=== PATIENT | male | born 1975 | race Caucasian/White ===

== ENCOUNTER 2017-11-19 17:56 | Emergency (ER) | payer OTHER ==
[2017-11-19] MEDS ORDERED: Sodium Chloride 0.9% 10 ML Syringe FLUSH PRN (18:23)
--- NOTE | 2017-11-19 18:38 | EDM.PDOC ---
ED HPI GENERAL MEDICAL PROBLEM - General Chief Complaint: Chest Pain Stated Complaint: CHEST PAIN Time Seen by Provider: 11/19/17 17:59 Source of Information: Reports: Patient History Limitations: Reports: No Limitations - History of Present Illness INITIAL COMMENTS - FREE TEXT/NARRATIVE: 41-year-old male presents for evaluation and treatment of left-sided chest pain. Patient describes the pain as starting on the left lower chest and radiated up into his left underarm. Reports that is pleuritic in nature. Present constantly for the last 2 days. Describes the pain as a throbbing sensation. Currently rates the pain as a 2 or 3 out of 10 and is declining any pain medication at present. He denies feeling shortness of breath but states that trying to control his breathing. Reports associated symptoms of a nonproductive cough. No lightheadedness, dizziness, nausea, vomiting, fevers or chills. He reports some pain in his right foot and ankle from her recent ankle sprain. reports radiation of the pain into his right calf. Patient did take 800 mg of ibuprofen prior to arrival in the ER around 1430 which gave him some relief. Patient does not use any tobacco products. Patient reports for work he works in [employer]. 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 No primary care provider. Duration: Day(s): (2) Location: Reports: Chest (left) Left Chest Pain Score (Numeric/FACES): 3 - Related Data Allergies Allergy/AdvReac Type Severity Reaction Status Date / Time No Known Allergies Allergy Verified 11/19/17 18:03 Home Meds: Home Meds Levofloxacin [Levaquin] 750 mg PO DAILY #6 tablet 11/19/17 [Rx] Past Medical History HEENT History: Reports: Impaired Vision Other HEENT History: wears glasses - Past Surgical History Other Musculoskeletal Surgeries/Procedures:: fractured foot and has screw in place Social & Family History - Tobacco Use Smoking Status *Q: Never Smoker Second Hand Smoke Exposure: No - Caffeine Use Caffeine Use: Reports: Coffee, Energy Drinks - Recreational Drug Use Recreational Drug Use: No ED ROS GENERAL - Review of Systems Review Of Systems: See Below Constitutional: Reports: Chills. Denies: Fever Respiratory: Reports: Pleuritic Chest Pain (left sided), Cough. Denies: Shortness of Breath (reprots trying to control breathing), Sputum Cardiovascular: Reports: Chest Pain (reports left sided chest pain). Denies: Lightheadedness GI/Abdominal: Denies: Abdominal Pain, Nausea, Vomiting Musculoskeletal: Reports: Leg Pain (right foot, ankle and lower leg) Neurological: Denies: Dizziness, Syncope ED EXAM, GENERAL - Physical Exam Exam: See Below Exam Limited By: No Limitations General Appearance: Alert, WD/WN, No Apparent Distress, Obese Ears: Normal External Exam Nose: Normal Inspection Throat/Mouth: Normal Inspection, Normal Voice, No Airway Compromise Respiratory/Chest: Lungs Clear, Normal Breath Sounds, Other (tachypnea) Cardiovascular: Regular Rate, Rhythm, No Murmur, Tachycardia GI/Abdominal: Soft, Non-Tender Neurological: Alert, Oriented, Normal Cognition Psychiatric: Normal Affect, Normal Mood Skin Exam: Warm, Dry, Normal Color EKG INTERPRETATION EKG Date: 11/19/17 Time: 18:00 Rhythm: Other Rate (Beats/Min): 104 [place]: Normal P-Wave: Present QRS: Normal ST-T: Normal QT: Normal EKG Interpretation Comments: Sinus tachycardia at 104 bpm. No ischemic changes. No LAD. No LVH. No IVCD. QTc within normal limits at 448 bpm. Reviewed by myself and Dr. Lam. Course - Vital Signs Last Recorded V/S: Last Vital Signs Temp 98.4 F 11/19/17 18:04 Pulse 114 H 11/19/17 18:04 Resp 12 11/19/17 18:04 BP 129/89 11/19/17 18:04 Pulse Ox 97 11/19/17 18:04 - Orders/Labs/Meds Labs: Laboratory Tests 11/19/17 11/19/17 11/19/17 Range/Units 18:30 18:30 18:30 WBC 17.35 H (4.23-9.07) K/mm3 RBC 5.11 (4.63-6.08) M/mm3 Hgb 14.0 (13.7-17.5) gm/L Hct 42.1 (40.1-51.0) % MCV 82.4 (79.0-92.2) fl MCH 27.4 (25.7-32.2) pg MCHC 33.3 (32.2-35.5) g/dl RDW Std Deviation 40.2 (35.1-43.9) fL Plt Count 241 (163-337) K/mm3 MPV 10.7 (9.4-12.3) fl Neut % (Auto) 78.1 H (34.0-67.9) % Lymph % (Auto) 14.1 L (21.8-53.1) % [place] % (Auto) 6.2 (5.3-12.2) % Eos % (Auto) 1.1 (0.8-7.0) Baso % (Auto) 0.2 (0.1-1.2) % Neut # (Auto) 13.55 H (1.78-5.38) K/mm3 Lymph # (Auto) 2.44 (1.32-3.57) K/mm3 [place] # (Auto) 1.08 H (0.30-0.82) K/mm3 Eos # (Auto) 0.19 (0.04-0.54) K/mm3 Baso # (Auto) 0.03 (0.01-0.08) K/mm3 PT 11.5 (9.5-12.1) SECONDS INR 1.06 APTT 30 (24-31) SECONDS D-Dimer, Quantitative 2.32 H (0.19-0.50) mg/L Sodium 136 (136-145) mEq/L Potassium 3.7 (3.5-5.1) mEq/L Chloride 102 (98-107) mEq/L Carbon Dioxide 25 (21-32) mEq/L Anion Gap 12.7 (5-15) BUN 12 (7-18) mg/dL Creatinine 1.1 (0.7-1.3) mg/dL Est Cr Clr Drug Dosing 92.22 mL/min Estimated GFR (MDRD) > 60 (>60) mL/min BUN/Creatinine Ratio 10.9 L (14-18) Glucose 107 H (74-106) mg/dL Calcium 8.9 (8.5-10.1) mg/dL Total Bilirubin 0.7 (0.2-1.0) mg/dL AST 21 (15-37) U/L ALT 32 (16-63) U/L Alkaline Phosphatase 70 (46-116) U/L CK-MB (CK-2) < 0.5 (0-3.6) ng/ml Troponin I < 0.017 (0.00-0.056) ng/mL C-Reactive Protein (<1.0) mg/dL Total Protein 8.2 (6.4-8.2) g/dl Albumin 3.5 (3.4-5.0) g/dl Globulin 4.7 gm/dL Albumin/Globulin Ratio 0.7 L (1-2) 11/19/17 Range/Units 18:30 WBC (4.23-9.07) K/mm3 RBC (4.63-6.08) M/mm3 Hgb (13.7-17.5) gm/L Hct (40.1-51.0) % MCV (79.0-92.2) fl MCH (25.7-32.2) pg MCHC (32.2-35.5) g/dl RDW Std Deviation (35.1-43.9) fL Plt Count (163-337) K/mm3 MPV (9.4-12.3) fl Neut % (Auto) (34.0-67.9) % Lymph % (Auto) (21.8-53.1) % [place] % (Auto) (5.3-12.2) % Eos % (Auto) (0.8-7.0) Baso % (Auto) (0.1-1.2) % Neut # (Auto) (1.78-5.38) K/mm3 Lymph # (Auto) (1.32-3.57) K/mm3 [place] # (Auto) (0.30-0.82) K/mm3 Eos # (Auto) (0.04-0.54) K/mm3 Baso # (Auto) (0.01-0.08) K/mm3 PT (9.5-12.1) SECONDS INR APTT (24-31) SECONDS D-Dimer, Quantitative (0.19-0.50) mg/L Sodium (136-145) mEq/L Potassium (3.5-5.1) mEq/L Chloride (98-107) mEq/L Carbon Dioxide (21-32) mEq/L Anion Gap (5-15) BUN (7-18) mg/dL Creatinine (0.7-1.3) mg/dL Est Cr Clr Drug Dosing mL/min Estimated GFR (MDRD) (>60) mL/min BUN/Creatinine Ratio (14-18) Glucose (74-106) mg/dL Calcium (8.5-10.1) mg/dL Total Bilirubin (0.2-1.0) mg/dL AST (15-37) U/L ALT (16-63) U/L Alkaline Phosphatase (46-116) U/L CK-MB (CK-2) (0-3.6) ng/ml Troponin I (0.00-0.056) ng/mL C-Reactive Protein 6.0 H* (<1.0) mg/dL Total Protein (6.4-8.2) g/dl Albumin (3.4-5.0) g/dl Globulin gm/dL Albumin/Globulin Ratio (1-2) Meds: Medications Discontinued Medications Generic Name Dose Route Start Last Admin Trade Name Freq PRN Reason Stop Dose Admin Aspirin 324 mg 11/19/17 18:51 11/19/17 18:55 Aspirin PO 11/19/17 18:52 324 mg ONETIME ONE Administration Iopamidol 100 ml 11/19/17 19:26 11/19/17 19:40 Isovue-370 (76%) IVPUSH 11/19/17 19:27 100 ml ONETIME ONE Administration Levofloxacin 750 mg 11/19/17 20:36 11/19/17 20:47 Levaquin PO 11/19/17 20:37 750 mg ONETIME ONE Administration Sodium Chloride 10 ml 11/19/17 18:23 11/19/17 18:37 Saline Flush FLUSH 10 ml ASDIRECTED PRN Administration Keep Vein Open - Radiology Interpretation Free Text/Narrative:: Chest: Portable view of the chest was obtained. Comparison: Prior chest x-ray is not available, subsequent chest CT chest performed later on the same day is available. Increased density within the left base is seen. This appears more prominent on the chest CT than on current chest x-ray. This has the appearance of pneumonia on the chest CT. Small pleural effusion is seen on subsequent chest CT which is not identified on this exam. Lungs otherwise appear clear. Heart size and mediastinum appear within normal limits for portable technique. Bony structures are grossly intact. Impression: 1. Increased density within the left base as described above. CT chest Technique: Multiple axial sections through the chest were obtained. Intravenous contrast was utilized. Study was performed as a pulmonary protocol. Findings: Pulmonary arteries are very suboptimally opacified. No large pulmonary emboli are seen within the main branches but segmental and subsegmental pulmonary emboli could easily be missed. Mediastinum and hilar regions show no adenopathy. No pericardial thickening is seen. Small left- sided pleural effusion is noted. Parenchymal density is noted within the left lung and difficult to exclude an area of pneumonia with small parapneumonic effusion. Lungs otherwise are clear. Visualized upper abdominal structures shows a calcified gallstones within the gallbladder. Liver shows fatty infiltration. Bone window settings appear within normal limits for the patient's age. Impression: 1. Very suboptimal opacification of the pulmonary arteries. No larger pulmonary emboli are seen within the main pulmonary arteries but emboli within the segmental or subsegmental branches could easily be missed. 2. Small left-sided pleural effusion with parenchymal density within the left base suspicious for pneumonia and small parapneumonic effusion. 3. Fatty infiltration within the liver and calcified gallstones within the gallbladder. - Re-Assessments/Exams Free Text/Narrative Re-Assessment/Exam: 11/19/17 19:16 d dimer came back elevated. Will obtain CT pulmonary angiogram to rule out PE. Patient continues to decline pain medication. 11/19/17 20:33 I reviewed the labs, EKG and imaging with the patient. We will treat for pneumonia. Close follow-up in the clinic. Discharge instructions as documented. Departure - Departure Time of Disposition: 20:35 Disposition: Home, Self-Care 01 Condition: Fair Clinical Impression: Pneumonia Prescriptions: Levofloxacin [Levaquin] 750 mg PO DAILY #6 tablet Instructions: Community-Acquired Pneumonia, Adult, [id number] Referrals: PCP,None [Primary Care Provider] - Maude Knott PA-C [Physician Franchise Manager] - Forms: ED Department Discharge Additional Instructions: Rest. Make sure you are drinking plenty of fluids. Levaquin 1 tab daily for 7 days. your first dose was given in the ER. Start your prescription tomorrow. Follow-up with family medicine within 1 week for recheck of your symptoms. Recommend Raya Bennett or Dr. Barfield at the [facility]. Call to schedule with one of these providers. Please return to the ER for symptoms change or worsen. practice good hand hygiene and cover your cough.
[2017-11-19] MEDS ORDERED: Aspirin 81 MG Tab.Chew PO ONE (18:51)
[2017-11-19] MEDS ORDERED: Iopamidol 755 Mg/ML 100 ML Bottle IVPUSH ONE (19:26)
--- NOTE | 2017-11-19 20:15 | CT ---
CT chest Technique: Multiple axial sections through the chest were obtained. Intravenous contrast was utilized. Study was performed as a pulmonary protocol. Findings: Pulmonary arteries are very suboptimally opacified. No large pulmonary emboli are seen within the main branches but segmental and subsegmental pulmonary emboli could easily be missed. Mediastinum and hilar regions show no adenopathy. No pericardial thickening is seen. Small left-sided pleural effusion is noted. Parenchymal density is noted within the left lung and difficult to exclude an area of pneumonia with small parapneumonic effusion. Lungs otherwise are clear. Visualized upper abdominal structures shows a calcified gallstones within the gallbladder. Liver shows fatty infiltration. Bone window settings appear within normal limits for the patient's age. Impression: 1. Very suboptimal opacification of the pulmonary arteries. No larger pulmonary emboli are seen within the main pulmonary arteries but emboli within the segmental or subsegmental branches could easily be missed. 2. Small left-sided pleural effusion with parenchymal density within the left base suspicious for pneumonia and small parapneumonic effusion. 3. Fatty infiltration within the liver and calcified gallstones within the gallbladder. Diagnostic code #3
[2017-11-19] MEDS ORDERED: Levofloxacin 500 MG Tab PO ONE (20:36)
--- NOTE | 2017-11-20 08:41 | CR ---
Chest: Portable view of the chest was obtained. Comparison: Prior chest x-ray is not available, subsequent chest CT chest performed later on the same day is available. Increased density within the left base is seen. This appears more prominent on the chest CT than on current chest x-ray. This has the appearance of pneumonia on the chest CT. Small pleural effusion is seen on subsequent chest CT which is not identified on this exam. Lungs otherwise appear clear. Heart size and mediastinum appear within normal limits for portable technique. Bony structures are grossly intact. Impression: 1. Increased density within the left base as described above. Diagnostic code #3
== END 2017-11-19 20:55 | disposition home or self-care (01) ==
LOC: JD.ED 17:56
DX: J18.9 Pneumonia, unspecified organism (principal)
CPT/HCPCS: 36415; 71045; 71275; 80053; 82553; 84484; 85025; 85379; 85610; 85730; 86140; 93005; 99285; A9270; J7050; Q9967; 93010; 99284